=== PATIENT | male | born 1960 | race Two or more races ===

== ENCOUNTER 2018-10-01 06:45 | Emergency (ER) | payer BC ==
[~2018-10-01] VITALS: Ht 167.6 cm; Wt 72.6 kg
[~2018-10-01 06:45] MED LIST: EFAV1TAB PO; FENO134C PO
[2018-10-01] MEDS ORDERED: LIDOCAINE 2% JEL UROJET 10 ML MM ONE ×2 (06:55→07:30)
--- NOTE | 2018-10-01 07:05 | NUR ---
PT BROUGHT IN TO EMERGENCY ROOM FOR URINARY RETENTION FIR 4 HOURS ACOMPANIED BY FAMILY CURRY INSSERTED PT STATES HE FEELS RELIEVED 300 ML OUT PUT URINE SAMPLE SENT TO LAB BLOOD PRESSURE WNL AFTER CURRY PLACEMENT. MD AWARE WILL CONTINUE TO MONITOR
[2018-10-01 07:30] LABS: APPEARANCE,URINE CLEAR (CLEAR); BILIRUBIN,URINE NEGATIVE (NEGATIVE); BLOOD, URINE NEGATIVE Ery/uL (NEGATIVE); COLOR,URINE YELLOW (YELLOW); KETONES,URINE NEGATIVE (NEGATIVE); LEUKOCYTE ESTERASE ,URINE NEGATIVE (NEGATIVE); NITRITE, URINE NEGATIVE (NEGATIVE); PROTEIN,URINE NEGATIVE (NEGATIVE); UGLUCOSE NEGATIVE (NEGATIVE); UROBILINOGEN,URINE 0.2 EU/dL (0.2)
[2018-10-01 07:31] LABS: BASOPHILS % (AUTO) 0.6 % (0.0-2.0); EOSINOPHILS % (AUTO) 1.8 % (0.0-6.0); HEMATOCRIT 37 % (39-51); HEMOGLOBIN 11.8 g/dL (13.5-17.5); LYMPHOCYTES # (AUTO) 1.6 /CMM (0.8-4.8); LYMPHOCYTES % (AUTO) 36.9 % (20.0-44.0); MEAN CORPUSCULAR HGB CONC 32 g/dl (31.0-36.0); MEAN CORPUSCULAR VOLUME 80 fL (80-96); MONOCYTES # (AUTO) 0.3 /CMM (0.1-1.30); MONOCYTES % (AUTO) 5.8 % (2.0-12.0); NEUTROPHILS # (AUTO) 2.4 /CMM (1.8-8.9); NEUTROPHILS % (AUTO) 54.9 % (43.0-81.0); PLATELET COUNT (AUTO) 192 /CMM (150-450); RED BLOOD CELL COUNT(AUTO) 4.58 MIL/uL (4.5-6.0); WHITE BLOOD COUNT (AUTO) 4.4 K/uL (4.3-11.0)
[2018-10-01 07:41] LABS: CALCIUM, SERUM 9.3 mg/dL (8.5-10.1); CREATININE 1.4 mg/dL (0.6-1.3); POTASSIUM 3.5 mmol/L (3.5-5.1)
[2018-10-01 08:28] VITALS: BP 144/93
--- NOTE | 2018-10-01 08:28 | NUR ---
TOTAL URINE OUTPUT IS 450ML CLEAR YELLOW. FOLY COLLECTION BAG REMOVED AND REPLACED WITH LEG BAG ON PATIENT. PATIENT DISCHARGED WITH SON TO HOME. WILL FOLLOW UP WITH UROLOGIST PATIENT STATES PAIN IS 0/10 WALKS WITH STEADY GAIT.
== END 2018-10-01 08:31 | disposition home or self-care (01) ==
LOC: ER 06:50
DX: R33.9 Retention of urine, unspecified (principal); I10 Essential (primary) hypertension; G51.0 Bell's palsy; Z86.73 Personal history of transient ischemic attack (TIA), and cerebral infarction without residual deficits; Z86.79 Personal history of other diseases of the circulatory system; Z88.0 Allergy status to penicillin
CPT/HCPCS: 36415; 51702; 80048; 81001; 85025; 87086; 99284; A4606; J3490; Z7610; 81000-TC